=== PATIENT | male | born 1975 | race Caucasian/White ===

== ENCOUNTER → 2016-12-29 | Outpatient (CLI) | payer BC ==
[~2016-12-29] MED LIST: ATOR-22 PO; CITA10TA4 PO; KLN5X PO; LISI-729 PO
[2016-12-29 10:54] LABS: BASO % 0.4 %; BASO ABS # 0.02 K/uL (0-0.2); COMPLETE YES; EOS % 1.2 %; HEMATOCRIT 44.3 % (42-52); IG% 0.2 %; LYMPH ABS # 1.88 K/uL (1.2-3.4); MEAN CELL VOLUME 87.5 fL (80-100); MEAN CORPUSCULAR HGB CONC 35.4 g/dl (32-36); MEAN PLATELET VOLUME 11.1 fL (7.4-10.4); MONO % 8.5 %; NEUT % 51.7 %; PLATELET COUNT 200 K/uL (130-400); RED BLOOD COUNT 5.06 M/uL (4.7-6.1); WHITE BLOOD COUNT 4.95 K/uL (4.8-10.8)
[2016-12-29 11:55] LABS: ALT/SGPT 32 U/L (12-78); AST/SGOT 18 U/L (15-37); BLOOD UREA NITROGEN 14 mg/dl (7-18); BUN/CREATININE RATIO 11.7 (10-20); CALCIUM 9.5 mg/dl (8.5-10.1); CARBON DIOXIDE 29 mmol/L (21-32); CHLORIDE 108 mmol/L (98-107); GLUCOSE 92 mg/dl (70-99); MAGNESIUM 2.3 mg/dl (1.8-2.4); POTASSIUM 4.6 mmol/L (3.5-5.1); SODIUM 142 mmol/L (136-145)
[2016-12-29 12:03] LABS: ALB/GLOB RATIO 1.1 (0.9-2); ALKALINE PHOSPHATASE 54 U/L (45-117); CHOLESTEROL 228 mg/dl (0-200); CHOLESTEROL/HDL RATIO 4.9; FERRITIN 223.7 ng/ml (8.0-388.0); HDL CHOLESTEROL 47 mg/dl; LDL CHOLESTEROL CALCULATED 153 mg/dl; TRIGLYCERIDES 142 mg/dl (0-150); VERY LOW DENSITY LIPOPROT CALC 28 mg/dl
== END | disposition home or self-care (01) ==
LOC: C.LABBC 08:07
PROVIDERS: ATTEND Nurse Practitioner Family
DX: E78.00 Pure hypercholesterolemia, unspecified (principal); I10 Essential (primary) hypertension; R53.83 Other fatigue

== ENCOUNTER → 2017-07-25 | Outpatient (CLI) | payer BC | END | disposition home or self-care (01) | LOC: C.LABSPEC 11:08 | PROVIDERS: ATTEND Nurse Practitioner Family | DX: J06.9 Acute upper respiratory infection, unspecified (principal) ==

== ENCOUNTER → 2017-08-20 | Outpatient (CLI) | payer BC ==
[2017-08-20 11:52] LABS: ALT/SGPT 40 U/L (12-78); AST/SGOT 24 U/L (15-37); BLOOD UREA NITROGEN 13 mg/dl (7-18); BUN/CREATININE RATIO 11.2 (10-20); CALCIUM 8.6 mg/dl (8.5-10.1); CARBON DIOXIDE 29 mmol/L (21-32); CHLORIDE 104 mmol/L (98-107); CREATININE 1.16 mg/dl (0.60-1.40); GLUCOSE 85 mg/dl (70-99); POTASSIUM 4.2 mmol/L (3.5-5.1); SODIUM 136 mmol/L (136-145)
[2017-08-20 11:55] LABS: ALB/GLOB RATIO 1.1 (0.9-2); ALKALINE PHOSPHATASE 53 U/L (45-117); CHOLESTEROL 246 mg/dl (0-200); CHOLESTEROL/HDL RATIO 5.2; HDL CHOLESTEROL 47 mg/dl; LDL CHOLESTEROL CALCULATED 172 mg/dl; TRIGLYCERIDES 137 mg/dl (0-150); VERY LOW DENSITY LIPOPROT CALC 27 mg/dl
== END | disposition home or self-care (01) ==
LOC: C.LABBC 08:56
PROVIDERS: ATTEND Nurse Practitioner Family
DX: E55.9 Vitamin D deficiency, unspecified (principal); E78.00 Pure hypercholesterolemia, unspecified

== ENCOUNTER 2019-09-26 10:38 | Inpatient (IN) ==
--- NOTE | 2019-09-04 13:22 | PAT Medication Instructions ---
Medication Instructions Date of Service September 04, 2019 Home Medications Medication Instructions Recorded lisinopril 5 mg tablet 5 mg PO QAM #90 tab 07/23/19 lisinopril 5 mg tablet 5 mg PO QAM tramadol 50 mg tablet 50 mg PO Q6H PRN DO NOT take the morning of surgery lisinopril 5 mg tablet 5 mg PO QAM Take morning of surgery With a small sip of water, OTHERWISE NOTHING TO EAT OR DRINK AFTER MIDNIGHT: tramadol 50 mg tablet 50 mg PO Q6H PRN (okay to take up to 4 hours prior to surgery if needed) Take evening before surgery tramadol 50 mg tablet 50 mg PO Q6H PRN (if needed) Other Notes If you have any questions please call us at [phone] or [phone] or [phone] or [phone]
--- NOTE | 2019-09-11 11:48 | Anesthesiology Consultation ---
Date of Service September 11, 2019 Assessment & Plan (1) Encounter for pre-operative examination: - Awaiting review of preop testing (labs, EKG, CXR). Chart Review Chart Review: Patient seen in Pre Admission Testing Teaching & Discussion Pre-Anesthesia Teaching/Discussion Notes: Instructed NPO after midnight before surgery,except medications with 15 cc of water. Medication instructions provided according to the PAT guidelines. History Surgery Operation Date: 09/26/19 12:35 Proposed Procedures p L4-L5 Decompression and Fusion, Spinal Cord Monitoring - Holden Boswell DO Height/Weight Height: 6 ft 2 in Weight: 105.4 kg Allergies Allergy/AdvReac Type Severity Reaction Status Date / Time No Known Allergies Allergy Verified 09/04/19 09:35 Medications Home Medications Medication Instructions Recorded Confirmed Last Taken tramadol 50 mg tablet 50 mg PO Q6H PRN 09/04/19 09/04/19 Unknown cholecalciferol (vitamin D3) 50,000 units PO WEEKLY #12 cap MDD 09/08/19 Unknown 50,000 unit capsule 7200 lisinopril 5 mg tablet 5 mg PO QAM #90 tab 09/08/19 Unknown rosuvastatin 5 mg tablet 5 mg PO HS #90 tab 09/08/19 Unknown Past Medical History Medical History Chronic back pain History of high cholesterol Hypertension Spinal stenosis Exercise / Class Metabolic Activity II 4-5 Yardwork/Stairs/Walk up hill Past Family History Family History Grandfather (Paternal) Myocardial infarction Past Surgical History Surgical History History of shoulder surgery RT X 2 History of tooth extraction Status post excision of lipoma posterior neck lipoma excision: 10/25/18: MAC#3, ETT 7.5 at [facility] Past Anesthesia History No Hx of Anesthesia Complications and No Family Hx of Anesthesia Complications History of PONV No Hx of PONV and No Hx of Motion Sickness Social History Smoking Status: Never smoker Do You Dip or Chew Tobacco: No Hx Alcohol Use: Yes Alcohol type: beer alcohol intake frequency: a few times a week Hx Substance Use: No substance use type: does not use Review of Systems Patient denies chest pain, shortness of breath, dyspnea on exertion, reflux, cough, wheezing, palpitations. Physical Exam Vital Signs VITALS BP 117/74 P 93 TEMP 98.0 SP02 95%RA RESP 18 PHYSICAL Full neck and c-spine range of motion. Full TMJ range of motion. TMD 3.5 finger breaths Mallampati Score 2 Dentition: intact, crowns on molars Lungs: clear throughout to auscultation Cardiac: regular rate and rhythm, no murmurs noted Spine: normal Carotid arteries: negative bruit Extremities: no edema Testing Laboratory Results 09/05/19 SODIUM 141 POTASSIUM 4.4 CHLORIDE 109 CO2 29 BUN 16 CREATININE 1.03 GLUCOSE 92
[2019-09-11 12:37] LABS: Basophils # (auto) 0.01 K/uL (0-0.2); Basophils % (auto) 0.2 %; Eosinophils # (auto) 0.07 K/uL (0-0.5); Eosinophils % (auto) 1.5 %; Hematocrit (blood only) 45.9 % (42-52); Lymphocytes # (auto) 2.15 K/uL (1.2-3.4); Lymphocytes % (auto) 45.2 %; Mean Corpuscular Hemoglobin 31.1 pg (25-34); Mean Corpuscular Hgb Conc 34.9 g/dL (32-36); Mean Corpuscular Volume 89.1 fL (80-100); Mean Platelet Volume 11.5 fL (7.4-10.4); Monocytes # (auto) 0.39 K/uL (0.11-0.59); Monocytes % (auto) 8.2 %; Neutrophils # (auto) 2.14 K/uL (1.4-6.5); Neutrophils % (auto) 44.9 %; Platelet Count 183 K/uL (130-400); RDW Coefficient of Variation 12.9 % (11.5-14.5); RDW Standard Deviation 42.3 fL (36.4-46.3); Red Blood Count 5.15 M/uL (4.7-6.1); White Blood Count 4.76 K/uL (4.8-10.8)
[2019-09-11 12:39] LABS: Appearance Urine Clear (Clear); Bacteria Urine Automated Negative (Negative); Bilirubin Urine Negative (Negative); Blood Urine Negative (Negative); Cast Urine Automated 0 /lpf (0-5); Color Urine Yellow; Epithelial Cell Urine Auto 0-5 /lpf (0-5); Glucose Urine UA Negative (Negative); Ketones Urine Negative (Negative); Leukocyte Esterase Urine Trace (Negative); Nitrite Urine Negative (Negative); Protein Urine Negative (Negative); RBC Urine Automated 0-4 /hpf (0-4); Specific Gravity Urine 1.009 (1.000-1.030); Urobilinogen Urine Negative (Negative)
[2019-09-11 12:46] LABS: Partial Thromboplastin Ratio 0.9; Partial Thromboplastin Time 24.4 Seconds (21.0-31.0); Prothrombin Time 10.6 Seconds (9.0-12.0)
--- NOTE | 2019-09-11 12:59 | XRay Report ---
XR chest Pre-admission PA/Lat HISTORY: 44 years-old Male PAT preoperative exam. No acute chest complaints COMPARISON: Chest and rib radiographs 07/10/2018 TECHNIQUE: PA and lateral views of the chest FINDINGS: Cardiac mediastinal and hilar silhouettes are within normal limits. No pneumothorax, pleural effusion , focal airspace consolidation or overt pulmonary edema. Bones of the chest appear grossly intact. IMPRESSION: No acute process. ACT 112: Negative or not required by law. The above report was generated using voice recognition software. It may contain grammatical, syntax o r spelling errors. Electronically signed by: Tay Goodson M.D. 09/11/2019 12:58 PM
[~2019-09-26 10:38] MED LIST changes: +ACETAMINOPHEN 500 MG TAB PO SCH; -ATOR-22 PO; +CEFAZOLIN 2000MG 2,000 MG/15 ML SYR IV SCH; -CITA10TA4 PO; +CeleBREX 200 MG CAP PO SCH; +GABAPENTIN 900 MG DOSE PO SCH; -KLN5X PO; -LISI-729 PO; +LR 15ML/HR IV SCH
[2019-09-26] MEDS ORDERED: MIDAZOLAM HCL 1 MG/ML 2ML VIAL ONE (10:59)
[2019-09-26] MEDS ORDERED: LIDOCAINE HCL 2% 2 ML VIAL/AMP(20MG/ML) INFIL ONE (10:59)
[2019-09-26] MEDS ORDERED: DEXAMETHASONE SOD INJ 4 MG/ML VIAL ONE (10:59)
[2019-09-26] MEDS ORDERED: NEOSTIGMINE METHYLSULFATE 1 MG/ML 10ML VIAL ONE (10:59)
[2019-09-26] MEDS ORDERED: ROCURONIUM BROMIDE 10 MG/ML 5 ML VIAL ONE ×2 (10:59→13:34)
[2019-09-26] MEDS ORDERED: GLYCOPYRROLATE 0.2 MG/ML VIAL ONE (10:59)
[2019-09-26] MEDS ORDERED: ONDANSETRON INJ 2 MG/ML 2 ML VIAL ONE (10:59)
[2019-09-26] MEDS ORDERED: fentaNYL citrate 100 MCG/2 ML VIAL ONE (10:59)
[2019-09-26] MEDS ORDERED: HYDROmorphone INJ 2 MG/ML SYR/VIAL ONE (10:59)
[2019-09-26] MEDS ORDERED: PROPOFOL IV EMULSION 10 MG/ML 20 ML VIAL IV ONE (10:59)
[2019-09-26] MEDS ORDERED: ATROPINE SULFATE 0.1 MG/ML 10ML SYR IV PRN (12:14)
[2019-09-26] MEDS ORDERED: ONDANSETRON INJ 2 MG/ML 2 ML VIAL IV PRN ×2 (12:14→16:07)
[2019-09-26] MEDS ORDERED: PROMETHAZINE HCL 12.5 MG in SODIUM CHLORIDE 0.9% 50 ML IV PRN ×2 (12:14→16:07)
[2019-09-26] MEDS ORDERED: NALOXONE HCL 0.4 MG/1 ML VIAL/CARP IV PRN ×2 (12:14→16:07)
[2019-09-26] MEDS ORDERED: ePHEDrine sulfate 50 MG/ML AMP IV PRN (12:14)
[2019-09-26] MEDS ORDERED: FLUMAZENIL 0.1 MG/1 ML 10 ML VIAL IV PRN (12:14)
[2019-09-26] MEDS ORDERED: LABETALOL HCL IV 5 MG/ML 20ML IV PRN (12:14)
--- NOTE | 2019-09-26 12:32 | History & Physical Bridge Note ---
Date of Service September 26, 2019 History & Physical Bridge Note I have examined the patient, reviewed the History & Physical and in the interval since the performance of the History & Physical I have noted the following changes of clinical significance: no changes noted
--- NOTE | 2019-09-26 12:34 | History & Physical Report ---
Date of Service September 26, 2019 Assessment & Plan (1) Chronic back pain greater than 3 months duration: L4-L5 decompression fusion Present on Admission?: Yes History of Present Illness Chief Complaint: Chronic persistent back pain Primary Care Provider: Jonathan Leal III, CRNP This is a 44-year-old male that is well-known to me that presents with chronic persistent back pain. After failing extensive course of nonoperative care is here for surgical intervention. Allergies Allergy/AdvReac Type Severity Reaction Status Date / Time No Known Allergies Allergy Verified 09/26/19 11:05 Home Medications Home Medications Medication Instructions Recorded Confirmed Type tramadol 50 mg tablet 50 mg PO Q6H PRN 09/04/19 09/26/19 History cholecalciferol (vitamin D3) 1,250 50,000 units PO WEEKLY #12 cap MDD 09/08/19 09/26/19 Rx mcg (50,000 unit) capsule 7200 lisinopril 5 mg tablet 5 mg PO QAM #90 tab 09/08/19 09/26/19 Rx rosuvastatin 5 mg tablet 5 mg PO HS #90 tab 09/08/19 09/26/19 Rx Past Med/Surg History Medical History Chronic back pain History of high cholesterol Hypertension Spinal stenosis Surgical History History of shoulder surgery RT X 2 History of tooth extraction Status post excision of lipoma posterior neck lipoma excision: 10/25/18: MAC#3, ETT 7.5 at [facility] Family History Grandfather (Paternal) Myocardial infarction Social History Preferred Language: Maltese Communication Ability: Effective Visual Impairment: No Limitations Hearing Ability: Normal Collection Team Lead Required: No Beliefs That Will Affect Care: None marital status: Current Living Situation: Spouse current occupational status: employed 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 Results & Data Vital Signs (Past 12 Hours) Vital Signs Temp Pulse Resp BP Pulse Ox 09/26/19 11:14 36.8 C 72 18 138/80 95
[2019-09-26] MEDS ORDERED: BACITRACIN INJ 50,000 UNIT VIAL ONE (12:50)
[2019-09-26] MEDS ORDERED: BUPIVACAINE/EPINEPHRINE 0.5% MPF 1:200,000 10 ML VIAL ONE (12:50)
[2019-09-26] MEDS ORDERED: FLOSEAL HEMOSTATIC MATRIX 10ML TOP ONE (14:32)
--- NOTE | 2019-09-26 14:38 | Operative Report ---
Post Operative Report Pre & Post Diagnosis Operation Date: 09/26/19 12:15 Pre-Op Diagnosis: Low Back Pain Post-Op Diagnosis: Low Back Pain I identified the patient and participated in the time-out.: Yes Procedure Operation Date: 09/26/19 12:15 Actual Procedures #1 lumbar decompression with medial facetectomy and foraminotomies L4-5. #2 posterior spinal fusion L4-5. #3 placement posterior instrumentation L4-5. #4 interbody fusion L4-5. #5 placement of titanium cage 14 x 26 mm at L4-5. #6 placement locally harvested morselized autograft in the posterior lateral gutters. #7 placement infuse collagen sponge, master graft in the posterior lateral gutters and ostial amp and interbody space. Surgeon Holden Boswell, Director Surgical Shiraz Weber Estimated Blood Loss 50 Findings Consistent with Post-Op Diagnosis Specimens None Indications This is a 44-year-old male well-known to me that presents above-mentioned diagno sis after failed extensive course of nonoperative care is here for surgical intervention. Description of Procedure Patient was met with identified informed consent obtained. Patient was then taken to the operative suite underwent an patient placed in a prone position the Carlos Enrique table on top of the Bautista frame. All bony prominences well-padded eyes inspected to ensure no external pressure placed upon the. This point the lumbar spine was prepped and draped in normal sterile fashion. Sharp dissection with the assistance of Bovie cautery was warm down to and exposing the lamina and transverse processes of L4 and L5. From caudal cephalad fashion complete laminectomy of L4 including medial facetectomy and foraminotomies were performed. Then placed instrumentation at L4 and L5 bilaterally with assistance of fluoroscopy the purposes idania placed. By way of a transforaminal approach on the right complete discectomy was performed endplates curetted to subcortical bleeding bone and a 14 x 26 mm titanium cage filled with osteo-amp bone graft tapped in position. The rods were then compressed locked into final position bilaterally. The transverse processes of L4 and L5 bur to subcortical bleeding bone. Infuse collagen sponge master graft and local autograft placed in the posterior lateral gutters. 15 round TANIA drain inserted. The incision was then closed with 1 Vicryl in the fascia 2-0 Vicryl subcutaneously and 4 Monocryl for final skin closure. Steri-Strips dressings placed. Patient will continue PACU stable condition. Please note Shiraz Weber was present at the entire procedure involved the patient positioning complex portions of the surgery and final skin closure. Lastly spinal cord monitoring was utilized that the procedure no changes noted. I attest to the content of the Intraoperative Record and any orders documented therein. Any exceptions are noted below.
--- NOTE | 2019-09-26 14:46 | Fluoroscopy Report ---
LUMBAR SPINE, INTRAOPERATIVE FLUOROSCOPY HISTORY: L4-L5 decompression and fusion. FLUOROSCOPY TIME: 18 seconds. FINDINGS: Intraoperative fluoroscopy was provided for the lumbar spine. 2 fluoroscopic spot images we re obtained. Posterior decompression and fusion at L4-L5 with pedicle screws and rods. The hardware a ppears intact. IMPRESSION: Fluoroscopy provided for a L4-5 posterior decompression and fusion. ACT 112: Negative or not required by law. Electronically signed by: Vladimir Fang M.D. 09/26/2019 2:45 PM
[2019-09-26] MEDS: HYDROmorphone INJ 1 MG/ML SYRINGE IV PRN ×8 (14:59→15:38)
--- NOTE | 2019-09-26 15:37 | Anesthesiology Progress Note ---
Date of Service September 26, 2019 Anesthesia Post Procedure Vital Signs Vital Signs: Temp Pulse Pulse Resp BP Pulse Ox 09/26/19 15:30 76 12 125/69 97 09/26/19 15:20 79 14 119/72 96 09/26/19 15:10 82 17 130/79 96 09/26/19 15:00 98 H 19 131/84 93 09/26/19 14:54 36.3 C L 90 11 L 141/86 H 96 09/26/19 11:14 36.8 C 72 18 138/80 95 Pain Intensity Lower Back: Pain Intensity: 6 Transfer of Care Handoff Completed per policy Notes Mental Status: alert / awake / arousable Patient Amnestic to Procedure: Yes Nausea / Vomiting: adequately controlled Pain: adequately controlled Airway Patency, RR, SpO2: stable & adequate BP & HR: stable & adequate Hydration State: stable & adequate Anesthetic Complications: no major complications apparent
[2019-09-26] MEDS ORDERED: DO NOT ADMINISTER PNEUMOCOCCAL VACCINE PRN (16:07)
[2019-09-26] MEDS ORDERED: LORazepam 0.5 MG/1 ML VIAL IV PRN (16:07)
[2019-09-26] MEDS ORDERED: ONDANSETRON 4 MG OD TAB PO PRN (16:07)
[2019-09-26] MEDS ORDERED: ACETAMINOPHEN 500 MG TAB PO PRN (16:07)
[2019-09-26] MEDS ORDERED: FAMOTIDINE 20 MG TAB PO PRN (16:07)
[2019-09-26] MEDS ORDERED: LORazepam 0.5 MG TAB PO PRN (16:07)
[2019-09-26] MEDS ORDERED: HYDROmorphone INJ 0.5 MG/0.5 ML SYR IV PRN (16:07)
[2019-09-26] MEDS ORDERED: ALUMINUM/MAGNESIUM SUSP 30 ML UDC PO PRN (16:07)
[2019-09-26] MEDS ORDERED: HYDROmorphone INJ 1 MG/ML SYRINGE IV PRN (16:07)
[2019-09-26] MEDS ORDERED: ACETAMINOPHEN 1,000 MG/100 ML VIAL IV PRN (16:07)
[2019-09-26] MEDS ORDERED: DO NOT ADMINISTER FLU VACCINE PRN (16:07)
[2019-09-26] MEDS ORDERED: METOCLOPRAMIDE HCL INJ 5 MG/ML 2 ML VIAL IV PRN (16:07)
[2019-09-26] MEDS ORDERED: bisacodyL 10 MG SUPP PR PRN (16:07)
[2019-09-26] MEDS ORDERED: MAGNESIUM HYDROXIDE SUSP 30 ML UDC PO PRN (16:07)
[2019-09-26] MEDS ORDERED: SOD PHOSPHATE/SOD BIPHOSPHATE ENEMA 132 ML BTL PR PRN (16:07)
[2019-09-26] MEDS: OXYCODONE HCL IR 5 MG TAB (IMMEDIATE RELEASE) PO PRN (17:03)
[2019-09-26] MEDS: KETOROLAC 30 MG/ML VIAL IV SCH ×2 (17:05→23:16)
[2019-09-26] MEDS: LACTATED RINGER'S 1,000 ML IV SCH (19:36)
[2019-09-26] MEDS: CEFAZOLIN 2000MG 2,000 MG/15 ML SYR IV SCH (19:40)
[2019-09-26] MEDS: TRAMADOL HCL 50 MG TABLET PO PRN (20:13)
[2019-09-26] MEDS: DOCUSATE SODIUM/SENNA 50/8.6MG TAB PO SCH (20:14)
[2019-09-26] MEDS: ROSUVASTATIN CALCIUM 5 MG TAB PO SCH (20:14)
[2019-09-27] MEDS: OXYCODONE HCL IR 5 MG TAB (IMMEDIATE RELEASE) PO PRN ×5 (02:45→23:50)
[2019-09-27] MEDS: LACTATED RINGER'S 1,000 ML IV SCH (02:54)
[2019-09-27] MEDS: CEFAZOLIN 2000MG 2,000 MG/15 ML SYR IV SCH (03:18)
[2019-09-27 06:14] LABS: Basophils # (auto) 0.01 K/uL (0-0.2); Basophils % (auto) 0.1 %; Hematocrit (blood only) 39.8 % (42-52); Hemoglobin 13.9 g/dL (14.0-18.0); Immature Granulocytes # (auto) 0.04 K/uL (0.00-0.02); Immature Granulocytes % (auto) 0.3 %; Lymphocytes # (auto) 0.84 K/uL (1.2-3.4); Lymphocytes % (auto) 7.1 %; Mean Corpuscular Hemoglobin 30.8 pg (25-34); Mean Corpuscular Hgb Conc 34.9 g/dL (32-36); Mean Corpuscular Volume 88.2 fL (80-100); Mean Platelet Volume 11.5 fL (7.4-10.4); Monocytes # (auto) 0.74 K/uL (0.11-0.59); Monocytes % (auto) 6.3 %; Neutrophils # (auto) 10.16 K/uL (1.4-6.5); Neutrophils % (auto) 86.2 %; Platelet Count 170 K/uL (130-400); RDW Standard Deviation 42.2 fL (36.4-46.3); Red Blood Count 4.51 M/uL (4.7-6.1); White Blood Count 11.79 K/uL (4.8-10.8)
[2019-09-27] MEDS: POLYETHYLENE (MIRALAX) 17 GM PACK PO SCH ×4 (06:26→23:51)
[2019-09-27] MEDS: KETOROLAC 30 MG/ML VIAL IV SCH ×2 (06:27→11:37)
[2019-09-27] MEDS: TRAMADOL HCL 50 MG TABLET PO PRN ×4 (06:27→19:17)
[2019-09-27 06:42] LABS: BUN Creatinine Ratio 16.4 (10-20); Calcium 8.9 mg/dl (8.5-10.1); Creatinine Clr Calc Pharmacy 126.3 ml/min; Est GFR (African American) 110.2; Est GFR (Non-African American) 95.1; Potassium 4.1 mmol/L (3.5-5.1)
[2019-09-27] MEDS: lisinopriL 5 MG TAB PO SCH (07:33)
--- NOTE | 2019-09-27 09:52 | Orthopedic Progress Note ---
Date of Service September 27, 2019 Assessment & Plan (1) Chronic back pain greater than 3 months duration: At this time we will continue physical therapy monitor his TANIA output hopefully discharge home in the next few days. Present on Admission?: Yes Subjective Back pain controlled leg pain improved. Physical Exam Physical Exam: Patient is good strength testing appears comfortable. Results & Data Vital Signs (Past 12 Hours) Vital Signs Temp Pulse Resp BP BP Pulse Ox 09/27/19 06:18 36.5 C 75 18 109/57 L 94 09/27/19 03:19 36.5 C 82 18 151/66 H 94 09/26/19 22:57 36.4 C L 71 17 145/67 H 92
--- NOTE | 2019-09-27 13:36 | Anesthesiology Progress Note ---
Date of Service September 27, 2019 Anesthesia Post Procedure Vital Signs Vital Signs: Temp Pulse Pulse Pulse Resp BP BP 09/27/19 11:39 36.7 C 85 18 132/86 09/27/19 06:18 36.5 C 75 18 109/57 L 09/27/19 03:19 36.5 C 82 18 151/66 H 09/26/19 22:57 36.4 C L 71 17 145/67 H 09/26/19 19:06 36.5 C 71 16 133/66 09/26/19 18:06 36.4 C L 73 17 114/62 09/26/19 17:01 77 17 116/70 09/26/19 16:34 36.5 C 73 16 124/71 09/26/19 16:05 36.8 C 74 16 129/72 09/26/19 15:55 77 12 119/73 09/26/19 15:50 36.8 C 73 15 123/72 09/26/19 15:40 73 12 133/68 09/26/19 15:30 76 12 125/69 09/26/19 15:20 79 14 119/72 09/26/19 15:10 82 17 130/79 09/26/19 15:00 98 H 19 131/84 09/26/19 14:54 36.3 C L 90 11 L 141/86 H Pulse Ox 09/27/19 11:39 96 09/27/19 06:18 94 09/27/19 03:19 94 09/26/19 22:57 92 09/26/19 19:06 94 09/26/19 18:06 95 09/26/19 17:01 96 09/26/19 16:34 97 09/26/19 16:05 95 09/26/19 15:55 98 09/26/19 15:50 98 09/26/19 15:40 97 09/26/19 15:30 97 09/26/19 15:20 96 09/26/19 15:10 96 09/26/19 15:00 93 09/26/19 14:54 96 Notes Mental Status: alert / awake / arousable Patient Amnestic to Procedure: Yes Nausea / Vomiting: adequately controlled Pain: adequately controlled Airway Patency, RR, SpO2: stable & adequate BP & HR: stable & adequate Hydration State: stable & adequate Anesthetic Complications: no major complications apparent and Pt Satisfied with anesthetic care
[2019-09-27] MEDS: ROSUVASTATIN CALCIUM 5 MG TAB PO SCH (22:30)
[2019-09-27] MEDS: DOCUSATE SODIUM/SENNA 50/8.6MG TAB PO SCH (22:30)
[2019-09-28] MEDS: OXYCODONE HCL IR 5 MG TAB (IMMEDIATE RELEASE) PO PRN ×4 (05:05→19:52)
[2019-09-28] MEDS: POLYETHYLENE (MIRALAX) 17 GM PACK PO SCH ×3 (05:06→18:33)
[2019-09-28] MEDS: TRAMADOL HCL 50 MG TABLET PO PRN ×3 (07:50→21:29)
[2019-09-28] MEDS: lisinopriL 5 MG TAB PO SCH (07:50)
[2019-09-28] MEDS ORDERED: DEXAMETHASONE SOD PHOSPHATE 8 MG in SYRINGE 0 ML IV STA (11:28)
--- NOTE | 2019-09-28 11:30 | Orthopedic Progress Note ---
Date of Service September 28, 2019 Assessment & Plan (1) Chronic back pain greater than 3 months duration: This time we will maintain the TANIA drain continue physical therapy anticipate discharge home tomorrow. Present on Admission?: Yes Subjective Back pain controlled. Physical Exam Physical Exam: Patient is good strength testing was comfortable. Results & Data Vital Signs (Past 12 Hours) Vital Signs Temp Pulse Resp BP Pulse Ox 09/28/19 06:31 36.6 C 70 18 118/72 95 09/27/19 23:44 36.5 C 68 17 108/66 95
[2019-09-28] MEDS: ROSUVASTATIN CALCIUM 5 MG TAB PO SCH (19:53)
[2019-09-28] MEDS: DOCUSATE SODIUM/SENNA 50/8.6MG TAB PO SCH (19:53)
[2019-09-29] MEDS: OXYCODONE HCL IR 5 MG TAB (IMMEDIATE RELEASE) PO PRN ×2 (00:09→06:21)
[2019-09-29] MEDS: POLYETHYLENE (MIRALAX) 17 GM PACK PO SCH ×2 (00:10→05:14)
--- NOTE | 2019-09-29 07:36 | Anesthesiology Progress Note ---
Date of Service September 29, 2019 Anesthesia Post Procedure Vital Signs Vital Signs: Temp Pulse Resp BP BP Pulse Ox 09/28/19 23:45 36.6 C 56 L 16 120/67 94 09/28/19 15:18 36.8 C 67 17 112/67 93 Pain Intensity Lower Back: Pain Intensity: 7 Notes Mental Status: alert / awake / arousable and participated in evaluation Patient Amnestic to Procedure: Yes Nausea / Vomiting: adequately controlled Pain: adequately controlled Airway Patency, RR, SpO2: stable & adequate BP & HR: stable & adequate Hydration State: stable & adequate Anesthetic Complications: see Notes below and Pt Satisfied with anesthetic care Notes: pt c/o nausea upon waking- has since resolved.
[2019-09-29] MEDS: lisinopriL 5 MG TAB PO SCH (08:24)
--- NOTE | 2019-09-29 09:16 | Discharge Summary ---
Date of Service September 29, 2019 Admission HPI Per Admitting Provider This is a 44-year-old male that is well-known to me that presents with chronic persistent back pain. After failing extensive course of nonoperative care is here for surgical intervention. Principal Diagnosis Chronic persistent back pain Discharge Data Allergies Allergy/AdvReac Type Severity Reaction Status Date / Time No Known Allergies Allergy Verified 09/26/19 11:05 Consultations 09/26/19 16:07 Consult Case Management - Discharge Planning Routine Procedures Performed Operation Date: 09/26/19 12:15 Actual Procedures p L4-L5 Decompression, Interbody and Fusion, Spinal Cord Monitoring - Holden Boswell DO Ordered Studies 09/26/19 12:15 FL fluoroscopy <1hr Routine FL lumbar spine 2-3V Routine Hospital Course (1) Chronic back pain greater than 3 months duration: Patient underwent lumbar decompression fusion tolerated so was taken to the orthopedic floor postoperative. Postop day 1 he was up and ambulating nicely. Aggressive postop day #2. Postop day #3 TANIA drainage decreased appropriately. Pain was well controlled. Neurologically intact. Subsequently discharged home. Discharge orders instructions from the chart for further review. Total Time Total Time Spent Total Time Spent (In Minutes): 20 minutes Discharge Plan Discharge Items Patient Disposition: Home - Self-Care Reason For Visit: Low Back Pain Discharge Diagnosis: Chronic persistent back pain Activity: As commented below Non-emergency contact: Primary Care Provider Call non-emergency contact if: you have any medication questions Follow-up/Referrals: Jonathan Leal III, CRNP [Primary Care Provider] - Diet: Regular Addtl Attending Provider Instructions: ACTIVITY RECOMMENDATIONS: SELF CARE INSTRUCTIONS AFTER THORACIC/LUMBAR FUSIONS 1. You may walk to your tolerance. It is good exercise for your legs and back. Expect some back and intermittent leg aches and pains. 2. You may perform "counter-top" level activities (make a sandwich, betsy with a project, etc.). 3. No bending or lifting of more than 10 pounds or back twisting of any nature (roll like a log when turning in bed). 4. You may ride in a car for 20-30 minutes at a time. No driving until after your first visit with your doctor. 5. Frequent changes of position and restricting sitting to 30 minutes at a time will help limit the amount of back spasms and stiffness you may experience. 6. You may discontinue the use of ambulatory aids (cane, crutches, etc.) once your strength and confidence allow. 7. You may machine feller the shower and let water strike your incision when you arrive home at least once daily. Do not take a tub bath, sit in a hot tub or go into a swimming pool until after your first recheck in the office. SPECIAL CARE INSTRUCTIONS: VERY IMPORTANT TO READ AND REVIEW A. Your surgical incision has been closed with a cosmetic suture under the skin that will dissolve in about 6 weeks. In 14 days, you can use a pair of clean scissors and cut the suture that is left outside of the skin at the ends of your incision. 1. The small skin tapes can be removed 7 days after surgery if they have not fallen off by that point. 2. You may keep the wound open to air as much as possible to promote healing after post-op day number 5 unless told otherwise by your doctor. 3. If you think the wound looks like it is becoming infected (redness or worsening drainage) and/or you are experiencing fever, chill or worsening back pain and muscle spasms, contact the office so that we may evaluate you as soon as possible. B. Complications are uncommon, but please contact us if you have any signs or symptoms of: 1. wound infection (fever higher than 102.5 degrees F, redness, separation of wound, drainage, or increasing pain from the incision) 2. blood clots in legs (pain, swelling, redness and warmth in legs) 3. urinary tract infection (fever higher than 102.5 degrees F, burning upon urination or increased frequency of urination) 4. nerve problems (inability to walk on your toes or heels, numbness, loss of bowel or bladder control) 5. any other symptoms that concern you C. Please call the office at if you have any concerns or questions about your operation or recovery. D. No smoking! Smoking drastically decreases the chance of a solid fusion. E. Do not take any anti-inflammatory medications (Indocin, Advil, Motrin, Aspirin, Naprosyn, etc.) as these may inhibit the chance of a solid fusion. Tylenol is okay to take for pain. MANAGING PAIN AFTER SPINAL SURGERY 1. Narcotic medication is intended for short-term use and will be provided for surgical pain. Surgical pain usually lasts for a period of 4-6 weeks. Narcotic medication includes Percocet, Vicodin, Darvocet, Tylenol #3 or Lortab. 2. Longer-term pain is more appropriately treated with non-narcotic medication such as Tylenol ES. 3. Muscle spasm is not appropriately treated with narcotics. Muscle relaxers such as Soma, Flexeril or Skelaxin can be used along with Tylenol ES. 4. Remember that we all live with some "aches and pains". This is not unusual or uncommon after an injury or as we get older. a. Back pain is expected and may include muscle spasms for 4 to 6 weeks after surgery. The pain should gradually improve. If the pain worsens for no apparent reason, please contact the office. b. Intermittent leg pain may also be experienced and should not be concerned about unless it worsens for no apparent reason. If so, please contact the office. 5. We will provide appropriate medication within the normal guidelines of their prescribed use. We will also be very cautious and aware of potential abuse and extended duration of patients' medication needs. a. Pain medications are for your comfort and to assist with sleep and rest so that the tissue can heal. They are not provided in order to return to normal activity and should not be used through the day. To do so or worsening pain at night can result from ongoing tissue damage and development of tolerance to the prescribed medicine. 6. Please allow 2-3 days to process refills. Prescriptions will not be mailed but must be picked up at the office. FOLLOW UP VISIT: Keep your scheduled follow-up appointment. Any questions, please call the office at . Pending Studies at Discharge: No Stand-Alone Forms: [facility], Smoking Cessation Medications and DC Order Prescriptions: New tramadol 50 mg tablet 50 mg PO Q6H PRN (Reason: pain, moderate) Qty: 30 RF: 0 oxycodone 5 mg tablet 5 mg PO Q6H PRN (Reason: pain, severe) Qty: 30 RF: 0 Continued rosuvastatin [Crestor] 5 mg tablet 5 mg PO HS Qty: 90 RF: 1 cholecalciferol (vitamin D3) 50,000 unit capsule 50,000 units PO WEEKLY MDD 7200 Qty: 12 RF: 0 lisinopril 5 mg tablet 5 mg PO QAM Qty: 90 RF: 1 tramadol 50 mg tablet 50 mg PO Q6H PRN (Reason: pain) RF: 0 Discharge Orders: Discharge Order (Routine); Ordered 09/29/19 Ordered By: Holden Boswell Admission Data Admit Date/Time: 09/26/19 15:10 Attending Provider: Holden Boswell Admit Provider: Holden Boswell Primary Care Provider: Jonathan Leal III
[2019-09-29] MEDS: TRAMADOL HCL 50 MG TABLET PO PRN (09:28)
[2019-10-01] MEDS ORDERED: ERGOCALCIFEROL 50,000 UNITS CAP PO SCH (09:00)
== END 2019-09-29 11:19 | disposition home or self-care (01) | DRG 455 ==
LOC: ASU 10:38 → 3E 15:10